=== PATIENT | female | born 1985 | race Caucasian/White ===

== ENCOUNTER → 2016-04-15 | Outpatient (CLI) | payer BC ==
[~2016-04-15] MED LIST: ANUSOL1 OIN T; BIRTH CONTROL1 EAC1; CELEBREX200 MG PO; MACROBID100 M1 PO; MOTRIN800 MG PO; Motrin,Rufen800 MG PO; PERCOCET 325 MG1 TA2 PO; PNV-SELECT1 TAB PO; SKELAXIN800 MG PO; VALTREX500 MG PO; ZOVIRAX 5%2 GM PO
== END | disposition home or self-care (01) ==
LOC: US 10:30
DX: Z34.80 Encounter for supervision of other normal pregnancy, unspecified trimester (principal); Z3A.01 Less than 8 weeks gestation of pregnancy

== ENCOUNTER → 2016-07-09 | Outpatient (CLI) | payer BC | END | disposition home or self-care (01) | LOC: US 16:42 | DX: Z34.82 Encounter for supervision of other normal pregnancy, second trimester (principal); Z3A.20 20 weeks gestation of pregnancy ==

== ENCOUNTER → 2016-07-25 | Outpatient (CLI) | payer BC | END | disposition home or self-care (01) | LOC: US 17:49 | DX: O32.1XX0 Maternal care for breech presentation, not applicable or unspecified (principal); Z3A.23 23 weeks gestation of pregnancy ==

== ENCOUNTER → 2016-08-24 | Outpatient (CLI) | payer BC | END | disposition home or self-care (01) | LOC: LAB 09:37 | DX: Z34.81 Encounter for supervision of other normal pregnancy, first trimester (principal) ==

== ENCOUNTER → 2016-08-27 | Outpatient (CLI) | payer BC ==
[~2016-08-27] MED LIST changes: +PRENATAL1 TA3 PO; +TYLENOL325 M1 PO
[2016-08-27 11:15] VITALS: BP 119/83
== END | disposition home or self-care (01) ==
LOC: LAB 10:56
DX: Z34.81 Encounter for supervision of other normal pregnancy, first trimester (principal)

== ENCOUNTER → 2016-09-20 | Outpatient (CLI) | payer BC | END | disposition home or self-care (01) | LOC: US 16:57 | DX: Z34.83 Encounter for supervision of other normal pregnancy, third trimester (principal) ==

== ENCOUNTER 2017-08-21 21:38 | Emergency (ER) | payer BC ==
[~2017-08-21] VITALS: Ht 165.1 cm; Wt 99.8 kg
[2017-08-21] MEDS ORDERED: Tobrex Ophth S2.5 ML OPH (21:45)
== END 2017-08-21 22:21 | disposition home or self-care (01) ==
LOC: ED 21:38
DX: H10.89 Other conjunctivitis (principal)

== ENCOUNTER → 2018-02-23 | Outpatient (CLI) | payer BC ==
[~2018-02-23] MED LIST changes: +Tobrex Ophth S2.5 ML OPH
[2018-02-23 08:21] LABS: URINE AMPHETAMINES < 1000 (1000ng/ml); URINE BARBITURATES < 200 (200ng/ml); URINE BENZODIAZEPINES < 200 (200ng/ml); URINE CANNABINOIDS (THC) < 50 (50ng/ml); URINE COCAINE < 300 (300ng/ml); URINE METHADONE < 300 (300ng/ml); URINE OPIATES < 300 (300ng/ml)
[2018-02-23 08:22] LABS: BASO % 0.2 % (0.0-1.0); EOS # 0.1 10*3/uL (0.0-0.4); EOS % 0.8 % (1.0-4.0); HEMATOCRIT 37.6 % (37.0-47.0); HEMOGLOBIN 12.1 g/dl (12.0-16.0); LYMPH # 1.8 10*3/uL (1.3-4.4); LYMPH % 26.7 % (27.0-41.0); MEAN CELL VOLUME 92.6 fl (81.0-99.0); MEAN CORPUSCULAR HGB 29.8 pg (27.0-31.0); MEAN CORPUSCULAR HGB CONC 32.2 g/dl (33.0-37.0); MEAN PLATELET VOLUME 10.7 fl (9.6-12.3); MONO # 0.4 10*3/uL (0.1-1.0); NEUT # 4.4 10*3/uL (2.3-7.9); PLATELET COUNT AUTOMATED 177 10*3/uL (130-400); RED BLOOD COUNT 4.06 10*6/uL (4.10-5.10); RED CELL DISTRI WIDTH 13.2 % (0-14.5); WHITE BLOOD COUNT 6.7 10*3/uL (4.8-10.8)
[2018-02-23 08:30] LABS: URINE PHENCYCLIDINE < 25 (25ng/ml)
[2018-02-24 07:06] LABS: HEPATITIS B SURFACE AG Negative (Negative)
== END | disposition home or self-care (01) ==
LOC: US 07:25
PROVIDERS: Obstetrics & Gynecology
DX: Z34.91 Encounter for supervision of normal pregnancy, unspecified, first trimester (principal)

== ENCOUNTER → 2018-03-10 | Outpatient (CLI) | payer BC | END | disposition home or self-care (01) | LOC: US 16:24 | DX: Z34.91 Encounter for supervision of normal pregnancy, unspecified, first trimester (principal); Z3A.12 12 weeks gestation of pregnancy ==

== ENCOUNTER → 2018-07-17 | Outpatient (CLI) | payer BC | END | disposition home or self-care (01) | LOC: US 13:48 | DX: Z34.03 Encounter for supervision of normal first pregnancy, third trimester (principal); Z3A.30 30 weeks gestation of pregnancy ==

== ENCOUNTER → 2018-08-14 | Outpatient (CLI) | payer BC ==
[~2018-08-14] MED LIST changes: +DEPO PROVER150 MG/M1 IM
== END | disposition home or self-care (01) ==
LOC: US 16:00
DX: O36.63X0 Maternal care for excessive fetal growth, third trimester, not applicable or unspecified (principal); Z3A.34 34 weeks gestation of pregnancy

== ENCOUNTER → 2018-12-08 | Outpatient (CLI) | payer BC ==
[~2018-12-08] MED LIST changes: +NORCO 5-325 TA1 EACH PO
== END | disposition home or self-care (01) ==
LOC: LAB 13:01
DX: Z63.8 Other specified problems related to primary support group (principal)

== ENCOUNTER → 2018-12-15 | Day surgery (SDC) | payer BC ==
[~2018-12-15] VITALS: Ht 170.1 cm; Wt 108.0 kg
[2018-12-15 06:58] VITALS: BP 116/77
[2018-12-15 09:15] VITALS: BP 120/73
[2018-12-15 09:30] VITALS: BP 127/75
[2018-12-15 09:45] VITALS: BP 115/70
[2018-12-15 10:00] VITALS: BP 113/75
[2018-12-15 10:11] VITALS: BP 110/79
== END | disposition home or self-care (01) ==
LOC: SDC 11-24 13:15
DX: Z30.2 Encounter for sterilization (principal); Z98.890 Other specified postprocedural states

== ENCOUNTER 2019-12-17 10:22 | Emergency (ER) | payer BC ==
[~2019-12-17] VITALS: Ht 167.6 cm; Wt 106.6 kg
[2019-12-17 11:05] LABS: BILIRUBIN NEGATIVE; BLOOD 1+ (NEGATIVE); CLARITY CLEAR (CLEAR); COLOR YELLOW (YELLOW); GLUCOSE NEGATIVE; KETONE NEGATIVE; LEUKO ESTERASE NEGATIVE (NEGATIVE); NITRITE NEGATIVE (NEGATIVE); PH 6.5 (4.5-8.0); SPECIFIC GRAVITY 1.025 (1.001-1.030)
[2019-12-17 11:14] LABS: BACTERIA 1+; MUCOUS 1+
[2019-12-17 11:42] LABS: BASO % 0.3 % (0.0-1.0); EOS # 0.1 10*3/uL (0.0-0.4); EOS % 1.1 % (1.0-4.0); HEMATOCRIT 40.5 % (37.0-47.0); LYMPH # 2.4 10*3/uL (1.3-4.4); LYMPH % 37.2 % (27.0-41.0); MEAN CELL VOLUME 89.4 fl (81.0-99.0); MEAN CORPUSCULAR HGB 28.7 pg (27.0-31.0); MEAN CORPUSCULAR HGB CONC 32.1 g/dl (33.0-37.0); MEAN PLATELET VOLUME 10.8 fl (9.6-12.3); MONO # 0.4 10*3/uL (0.1-1.0); MONO % 6.7 % (3.0-9.0); NEUT # 3.4 10*3/uL (2.3-7.9); NEUT % 54.5 % (47.0-73.0); PLATELET COUNT AUTOMATED 195 10*3/uL (130-400); RED BLOOD COUNT 4.53 10*6/uL (4.10-5.10); RED CELL DISTRI WIDTH 13.5 % (0-14.5); WHITE BLOOD COUNT 6.3 10*3/uL (4.8-10.8)
[2019-12-17 12:00] LABS: ALBUMIN 3.8 gm/dl (3.1-4.5); ALKALINE PHOSPHATASE 61 U/L (45-117); BUN 16 mg/dl (7-24); CHLORIDE 108 mmol/L (98-107); CREATININE 0.83 mg/dL (0.55-1.02); LIPASE 83 U/L (73-393); POTASSIUM 3.9 mmol/L (3.5-5.1); SGOT/AST 12 IU/L (3-35); SGPT/ALT 18 U/L (12-78); SODIUM 138 mmol/L (136-145); TOTAL PROTEIN 7.3 gm/dL (6.4-8.2)
[2019-12-17] MEDS ORDERED: MACROBID100 M1 PO (13:59)
== END 2019-12-17 14:08 | disposition home or self-care (01) ==
LOC: ED 10:22
PROVIDERS: Nurse Practitioner Family
DX: N39.0 Urinary tract infection, site not specified (principal); R10.32 Left lower quadrant pain; Z79.899 Other long term (current) drug therapy

== ENCOUNTER → 2020-01-31 | Outpatient (CLI) | payer BC ==
[2020-01-31 10:20] LABS: BASO % 0.4 % (0.0-1.0); EOS # 0.1 10*3/uL (0.0-0.4); HEMATOCRIT 41.7 % (37.0-47.0); LYMPH # 2.1 10*3/uL (1.3-4.4); LYMPH % 29.7 % (27.0-41.0); MEAN CELL VOLUME 89.7 fl (81.0-99.0); MEAN CORPUSCULAR HGB CONC 32.4 g/dl (33.0-37.0); MEAN PLATELET VOLUME 10.9 fl (9.6-12.3); MONO # 0.4 10*3/uL (0.1-1.0); NEUT # 4.5 10*3/uL (2.3-7.9); NEUT % 63.8 % (47.0-73.0); PLATELET COUNT AUTOMATED 244 10*3/uL (130-400); RED BLOOD COUNT 4.65 10*6/uL (4.10-5.10); RED CELL DISTRI WIDTH 13.5 % (0-14.5)
[2020-01-31 10:43] LABS: B-hCG (QUALITATIVE) NEGATIVE (NEGATIVE)
[2020-02-01 08:09] LABS: FOLLICLE STIMULATING HORMONE 7.5 mIU/mL (.); LUTEINIZING HORMONE 17.1 mIU/mL (.); PROLACTIN 8.5 ng/mL (4.8-23.3)
[2020-02-01 20:08] LABS: TESTOSTERONE FREE, (DIRECT) 5.7 pg/mL (0.0-4.2)
== END | disposition home or self-care (01) ==
LOC: LAB 09:22 → US 09:30
PROVIDERS: ATTEND Obstetrics & Gynecology
DX: N93.9 Abnormal uterine and vaginal bleeding, unspecified (principal)

== ENCOUNTER → 2021-04-05 | Outpatient (CLI) | payer BC | END | disposition home or self-care (01) | LOC: US 08:47 | PROVIDERS: ATTEND Nurse Practitioner Women's Health | DX: N88.8 Other specified noninflammatory disorders of cervix uteri (principal); N92.0 Excessive and frequent menstruation with regular cycle; Z87.42 Personal history of other diseases of the female genital tract ==

== ENCOUNTER 2022-04-04 09:13 | Emergency (ER) | payer MEDICAID ==
[~2022-04-04] VITALS: Ht 165.1 cm; Wt 108.9 kg
[2022-04-04 09:44] LABS: BASO % 0.6 % (0.0-1.0); EOS % 0.6 % (1.0-4.0); HEMATOCRIT 39.4 % (37.0-47.0); LYMPH # 1.6 10*3/uL (1.3-4.4); LYMPH % 22.9 % (27.0-41.0); MEAN CELL VOLUME 89.1 fl (81.0-99.0); MEAN CORPUSCULAR HGB 29.6 pg (27.0-31.0); MEAN CORPUSCULAR HGB CONC 33.2 g/dl (33.0-37.0); MEAN PLATELET VOLUME 10.2 fl (9.6-12.3); MONO # 0.4 10*3/uL (0.1-1.0); MONO % 5.4 % (3.0-9.0); NEUT # 4.9 10*3/uL (2.3-7.9); NEUT % 70.1 % (47.0-73.0); PLATELET COUNT AUTOMATED 220 10*3/uL (130-400); RED BLOOD COUNT 4.42 10*6/uL (4.10-5.10); RED CELL DISTRI WIDTH 13.2 % (0-14.5)
[2022-04-04 10:00] LABS: ALKALINE PHOSPHATASE 56 U/L (46-116); BUN 13 mg/dl (9-23); CHLORIDE 103 mmol/L (98-107); SGPT/ALT 41 U/L (10-49); TOTAL PROTEIN 7.2 gm/dL (6.0-8.0)
[2022-04-04] MEDS ORDERED: OMEPRAZOLE40 MG PO (10:15)
== END 2022-04-04 10:23 | disposition home or self-care (01) ==
LOC: ED 09:13
PROVIDERS: Internal Medicine
DX: K21.9 Gastro-esophageal reflux disease without esophagitis (principal)

== ENCOUNTER → 2022-04-09 | Outpatient (CLI) | payer MEDICAID ==
[~2022-04-09] MED LIST changes: +OMEPRAZOLE40 MG PO
== END | disposition home or self-care (01) ==
LOC: RAD 16:11
PROVIDERS: ATTEND Family Medicine
DX: M48.02 Spinal stenosis, cervical region (principal); M25.511 Pain in right shoulder

== ENCOUNTER → 2022-05-08 | Outpatient (CLI) | payer OTHER ==
[2022-05-08 16:34] LABS: BASO % 0.3 % (0.0-1.0); EOS # 0.1 10*3/uL (0.0-0.4); EOS % 1.2 % (1.0-4.0); HEMATOCRIT 40.7 % (37.0-47.0); LYMPH # 2.7 10*3/uL (1.3-4.4); LYMPH % 39.5 % (27.0-41.0); MEAN CELL VOLUME 91.3 fl (81.0-99.0); MEAN CORPUSCULAR HGB 29.4 pg (27.0-31.0); MEAN CORPUSCULAR HGB CONC 32.2 g/dl (33.0-37.0); MEAN PLATELET VOLUME 10.3 fl (9.6-12.3); MONO # 0.4 10*3/uL (0.1-1.0); NEUT # 3.6 10*3/uL (2.3-7.9); NEUT % 52.9 % (47.0-73.0); PLATELET COUNT AUTOMATED 236 10*3/uL (130-400); RED BLOOD COUNT 4.46 10*6/uL (4.10-5.10); RED CELL DISTRI WIDTH 13.1 % (0-14.5); WHITE BLOOD COUNT 6.8 10*3/uL (4.8-10.8)
== END | disposition home or self-care (01) ==
LOC: US 02-13 14:00 → LAB 14:37 → US 15:00
PROVIDERS: ATTEND Nurse Practitioner Women's Health
DX: N92.1 Excessive and frequent menstruation with irregular cycle (principal); N83.8 Other noninflammatory disorders of ovary, fallopian tube and broad ligament; N83.00 Follicular cyst of ovary, unspecified side; R53.83 Other fatigue

== ENCOUNTER → 2022-08-22 | Outpatient (CLI) | payer OTHER ==
[2022-08-22 11:14] LABS: HEMATOCRIT 42.1 % (37.0-47.0); MEAN CELL VOLUME 89.6 fl (81.0-99.0); MEAN CORPUSCULAR HGB CONC 33.5 g/dl (33.0-37.0); MEAN PLATELET VOLUME 10.2 fl (9.6-12.3); RED BLOOD COUNT 4.7 10*6/uL (4.10-5.10); WHITE BLOOD COUNT 5.9 10*3/uL (4.8-10.8)
[2022-08-22 11:51] LABS: ALKALINE PHOSPHATASE 64 U/L (46-116); BUN 12 mg/dl (9-23); CHLORIDE 106 mmol/L (98-107); CHOLESTEROL 181 mg/dL (<200); CPK 63 U/L (34-171); FREE T4 0.95 ng/dl (0.89-1.76); LDL CHOLESTEROL 115 mg/dL (9-159); POTASSIUM 4.1 mmol/L (3.4-5.1); SGPT/ALT 21 U/L (10-49); THYROID STIM HORMONE (HS) 2.166 uIU/ml (0.550-4.780); TOTAL PROTEIN 7.5 gm/dL (6.0-8.0); TRIGLYCERIDES 131 mg/dl (<150)
[2022-08-22 11:52] LABS: VALPROIC ACID (DEPAKENE) < 3.0 ug/ml (50-100)
== END | disposition home or self-care (01) ==
LOC: LAB 10:36
PROVIDERS: ATTEND Family Medicine
DX: E78.00 Pure hypercholesterolemia, unspecified (principal); E55.9 Vitamin D deficiency, unspecified; R51.9 Headache, unspecified; R53.83 Other fatigue; R63.5 Abnormal weight gain

== ENCOUNTER → 2024-01-05 | Outpatient (CLI) | payer BC ==
[2024-01-05 13:27] LABS: HEMATOCRIT 42.3 % (37.0-47.0); MEAN CELL VOLUME 89.8 fl (81.0-99.0); MEAN CORPUSCULAR HGB 28.7 pg (27.0-31.0); MEAN CORPUSCULAR HGB CONC 31.9 g/dl (33.0-37.0); MEAN PLATELET VOLUME 10.8 fl (9.6-12.3); RED BLOOD COUNT 4.71 10*6/uL (4.10-5.10); RED CELL DISTRI WIDTH 13.9 % (0-14.5); WHITE BLOOD COUNT 6.2 10*3/uL (4.8-10.8)
[2024-01-05 13:50] LABS: ALKALINE PHOSPHATASE 51 U/L (46-116); BUN 11 mg/dl (9-23); CHLORIDE 104 mmol/L (98-107); CHOLESTEROL 161 mg/dL (<200); LDL CHOLESTEROL 106 mg/dL (9-159); POTASSIUM 3.7 mmol/L (3.4-5.1); SGPT/ALT 27 U/L (5-49); TOTAL PROTEIN 7.8 gm/dL (6.0-8.0); TRIGLYCERIDES 99 mg/dl (<150)
== END | disposition home or self-care (01) ==
LOC: LAB 12:53
PROVIDERS: ATTEND Family Medicine
DX: Z13.9 Encounter for screening, unspecified (principal); R91.8 Other nonspecific abnormal finding of lung field; E78.00 Pure hypercholesterolemia, unspecified; R06.02 Shortness of breath; R50.9 Fever, unspecified; R05.9 Cough, unspecified

== ENCOUNTER → 2024-01-20 | Outpatient (CLI) | payer BC | END | disposition home or self-care (01) | LOC: LAB 13:30 | PROVIDERS: ATTEND Family Medicine | DX: J18.9 Pneumonia, unspecified organism (principal) ==

== ENCOUNTER → 2024-03-19 | Outpatient (CLI) | payer BC ==
[2024-03-19 10:16] LABS: ALKALINE PHOSPHATASE 63 U/L (46-116); BUN 17 mg/dl (9-23); CHLORIDE 108 mmol/L (98-107); POTASSIUM 4.2 mmol/L (3.4-5.1); SGPT/ALT 22 U/L (5-49); TOTAL PROTEIN 7.2 gm/dL (6.0-8.0)
== END | disposition home or self-care (01) ==
LOC: LAB 08:10
PROVIDERS: ATTEND Family Medicine
DX: E74.9 Disorder of carbohydrate metabolism, unspecified (principal)

== ENCOUNTER → 2024-09-14 | Outpatient (CLI) | payer BC | END | disposition home or self-care (01) | LOC: US 09:20 | PROVIDERS: ATTEND Internal Medicine | DX: N83.291 Other ovarian cyst, right side (principal); N92.1 Excessive and frequent menstruation with irregular cycle ==